=== PATIENT | female | born 1975 | race Caucasian/White ===

== ENCOUNTER → 2018-08-12 | Outpatient (CLI) | payer OTHER | LOC: RAD 10:32 | DX: Z12.31 Encounter for screening mammogram for malignant neoplasm of breast (principal) ==

== ENCOUNTER → 2018-09-09 | Outpatient (CLI) | payer OTHER ==
[~2018-09-09] VITALS: Ht 162.6 cm; Wt 69.9 kg
[~2018-09-09] MED LIST: FLONASE 0.05%50 MCG NASAL; TUMS PO; ZYRTEC10 M5 PO
--- NOTE | ~2018-09-09 | P ---
[facility] [place] [address] PROCEDURE REPORT Name: JASON MAC Room #: REG [facility].#: [id number] Admission: 09/09/18 ������������������ Attend Phys: Hari Goldstein Discharge: ������������������ Date of : 71 Report #: [id number] THIS REPORT FOR: //name// CC: Hari Schaeffer ARMANDO MORALES Kt Reyes DATE OF SERVICE: 09/09/2018 PROCEDURE: Upper endoscopy with biopsies and esophageal dilation. HISTORY OF PRESENT ILLNESS: The patient is a 42-year-old female who was seen in the office initially on 09/04/2018 with complaints of dysphagia. This has been ongoing for approximately 5 years. No previous history of endoscopy. She does report some mild heartburn at times, uses Tums on a p.r.n. basis. Plan is for EGD. DESCRIPTION OF PROCEDURE: The risks and benefits of the procedure were explained to the patient, those risks including but not limited to bleeding, perforation and the risk of sedation. She understood these risks and gave informed consent. Sedation was given using propofol per Anesthesia. Next, using a standard Olympus upper endoscope, the scope was placed in the patient's mouth and advanced under direct vision to the esophagus, stomach and into the second portion of the duodenum. The larynx was normal in appearance. The esophagus showed changes consistent with eosinophilic esophagitis. Biopsies were obtained. In the distal esophagus at the GE junction, grade A erosive esophagitis was also noted. No evidence of stricture. Overall, the gastric mucosa was normal in the fundus and body; however, in the antrum, several small erosions were noted. Biopsies were obtained to rule out H. pylori. The pylorus was normal and patent. The duodenal bulb, first and second portion were all normal. The scope was then brought back up into the patient's stomach and a Savary guidewire was inserted through the scope, leaving the guidewire in place as the scope was then withdrawn. Next, a 48-Estonian Savary dilation of the esophagus was then performed without difficulty. The wire and dilator were removed. The scope was reintroduced into the patient's stomach. There was no evidence of mucosal tear after dilation. The scope was then withdrawn and the procedure terminated. The patient tolerated the procedure well. IMPRESSION: 1. Changes of likely eosinophilic esophagitis noted. 2. Grade A erosive esophagitis. 3. Small gastric erosions. 4. Otherwise, normal upper endoscopy. RECOMMENDATIONS: 1. Await biopsy results. [address] [address] PROCEDURE REPORT Name: JASON MAC Room #: REG [facility] [place]#: [id number] Admission: 09/09/18 ������������������ Attend Phys: Hari Goldstein Discharge: ������������������ Date of : 71 Report #: [id number] 2. Observe the patient post-dilation. 3. Recommend daily PPI therapy. Thank you for allowing me to participate in her care. ��������������������������������������������� ���������������������������������������� By: ��������������������������������������������� [id number] Hari Schaeffer, /pj
--- NOTE | 2018-09-10 16:06 | PATH ---
[facility] [address] [place] [address] PATHOLOGY RPT PROCEDURE Name: JASON MAC Room #: REG [facility] [place].#: [id number] ������������������ Admission: 09/09/18 ������������������ Date of : 71 Discharge: Report #: [id number] Path Case #: [id number] [facility] Accession Number: [id number] . 01 Material submitted: . PART A: stomach - BX GASTRITIS R/O H PYLORI PART B: esophagus - BX ESOPHAGUS R/O EOSINOPHILIC ESOPHAGITIS . 01 Clinical history: . Pre-OP DX: Dysphagia Post-OP DX: Gastritis, esophagitis, dysphagia . 01 Frozen section diagnosis: . . /QMS . 02 Diagnosis: A. Gastric mucosa, gastritis R/O H. pylori, endoscopic biopsy: - Moderate reactive gastropathy. - Negative for intestinal metaplasia or atrophy. - Negative for Helicobacter pylori (properly controlled immunohistochemical stain performed). . B. Squamous mucosa, esophagus R/O EOE, endoscopic biopsy: - Mild active esophagitis with increased intraepithelial eosinophils, ranging from 8-10 per high power field (please see comment). . (IUV:jackeline; 09/10/2018) QMS/09/10/2018 . 02 Comment: Examination of the esophageal biopsy tissue shows squamous mucosa with a marked number of intraepithelial eosinophils. Although eosinophils are commonly encountered in inflammation due to reflux esophagitis, the eosinophils in the present specimen are numerous, exceeding 8-10/hpf. Apart from reflux esophagitis, potential etiologies for the histologic pattern include allergic and collagen vascular diseases, fungal or parasitic infections, and eosinophilic esophagitis (idiopathic). Please correlate with clinical and endoscopic findings. (IUV:jackeline; 09/10/2018) . 02 Electronically signed: . Argenis Taylor MD, Pathologist NPI- [id number] . 01 Gross description: . A. Received in formalin labeled "Jason Mac BX gastritis, rule out [address] [address] PATHOLOGY RPT PROCEDURE Name: JASON MAC Room #: REG [facility]#: [id number] ������������������ Admission: 09/09/18 ������������������ Date of : 71 Discharge: Report #: [id number] Path Case #: [id number] H. pylori," are 5 segments of velazco soft tissue measuring 1.3 x 0.9 x 0.1 cm in aggregate dimensions and ranging from 0.1 to 0.5 cm in maximum dimension. The specimen is submitted entirely in cassette A1. . B. Received in formalin labeled "Nancy Jason, BX esophagus, rule out eosinophilic esophagitis," are 4 segments of velazco soft tissue measuring 1.4 x 1.1 x 0.1 cm in aggregate dimensions and ranging from 0.2 to 0.6 cm in maximum dimension. The specimen is submitted entirely in cassette B1. (TSD; 09/09/2018) TOB/TOB . 02 Pathologist provided ICD-10: K31.9, K20.9 . 02 CPT . 178974, 961527, [id number] Specimen Comment: A courtesy copy of this report has been sent to Specimen Comment: [phone], . Specimen Comment: Report sent to / DR ZENDEJAS Performed at: [address] [id number] MD Aneudy Scruggs MD Phone: [phone] Performed at: [address] [id number] MD Argenis Taylor MD Phone: [phone]
== END | disposition home or self-care (01) ==
LOC: GI 07:54
DX: K31.9 Disease of stomach and duodenum, unspecified (principal); K20.9 Esophagitis, unspecified; K21.9 Gastro-esophageal reflux disease without esophagitis; Z87.891 Personal history of nicotine dependence; Z98.51 Tubal ligation status; Z98.890 Other specified postprocedural states; Z79.899 Other long term (current) drug therapy
CPT/HCPCS: 62110; 62900

== ENCOUNTER → 2019-02-17 | Outpatient (CLI) | payer OTHER ==
[~2019-02-17] VITALS: Ht 160 cm; Wt 65.3 kg
[~2019-02-17] MED LIST changes: +CLONAZEPAM 0.50.5 M1 PO; +PROTONIX 20 MG20 MG PO
--- NOTE | ~2019-02-17 | P ---
[facility] [place] [place] [address] PROCEDURE REPORT Name: JASON MAC Room #: REG [facility]#: [id number] Admission: 02/17/19 Attend Phys: Hari Goldstein Discharge: Date of : 71 Report #: [id number] THIS REPORT FOR: //name// CC: Natalia Hernandez [facility] Hari Reyes MD DATE OF SERVICE: 02/17/2019 PROCEDURE PERFORMED: Colonoscopy. HISTORY OF PRESENT ILLNESS: The patient is a 43-year-old female who presents today for screening colonoscopy. Her sister was recently diagnosed with Begum syndrome following an endometrial cancer. The patient is to be tested for Begum syndrome, but has not been tested as of yet. There is a possible family history of colon cancer in her grandmother. The patient denies any symptoms at this time. Her bowel movements have been normal. No previous history of colonoscopy. DESCRIPTION OF PROCEDURE: The risks and benefits of the procedure were explained to the patient, those risks including but not limited to bleeding, perforation and the risk of sedation. She understood these risks and gave informed consent. Sedation was given using propofol per anesthesia. Next, a digital rectal exam showed small external hemorrhoids, otherwise normal. Next, using a standard Olympus colonoscope, the scope was placed in the patient's anus and advanced under direct vision to the cecum. The overall prep was excellent. The cecum and ileocecal valve were normal in appearance. Ascending, transverse, descending and sigmoid colon were all normal. The rectal mucosa was normal. On retroflexion, no abnormalities were noted. Close examination of the anal canal showed a single external hemorrhoid. The scope was then withdrawn and the procedure terminated. The patient tolerated the procedure well. IMPRESSION: 1. Small external hemorrhoid. 2. Otherwise, normal colonoscopy. RECOMMENDATIONS: Await Begum syndrome testing results. If positive, the patient will need a colonoscopy and EGD every 1-2 years. If negative, likely recommend repeat colonoscopy in 5 years due to the possible family history of colon cancer. [facility] [address] [place] [address] PROCEDURE REPORT Name: JASON MAC Room #: REG [facility] Dick#: [id number] Admission: 02/17/19 Attend Phys: Hari Goldstein Discharge: Date of : 71 Report #: [id number] Thank you for allowing me to participate in her care. By: [id number] Hari Schaeffer MD /nt
== END | disposition home or self-care (01) ==
LOC: GI 07:12
DX: Z12.11 Encounter for screening for malignant neoplasm of colon (principal); K64.4 Residual hemorrhoidal skin tags; K21.9 Gastro-esophageal reflux disease without esophagitis; F17.210 Nicotine dependence, cigarettes, uncomplicated; Z98.890 Other specified postprocedural states; Z85.828 Personal history of other malignant neoplasm of skin; Z98.51 Tubal ligation status; Z88.8 Allergy status to other drugs, medicaments and biological substances; Z79.899 Other long term (current) drug therapy; Z84.81 Family history of carrier of genetic disease
CPT/HCPCS: 62110; 62900

== ENCOUNTER → 2019-09-23 | Outpatient (CLI) | payer OTHER | LOC: RAD 13:12 | PROVIDERS: ATTEND Obstetrics & Gynecology | DX: Z12.31 Encounter for screening mammogram for malignant neoplasm of breast (principal) ==

== ENCOUNTER → 2020-02-07 | Outpatient (CLI) | payer OTHER | LOC: LAB 12:04 | PROVIDERS: ATTEND Nurse Practitioner | DX: U07.1 COVID-19 (principal) ==

== ENCOUNTER 2020-11-15 15:40 | Emergency (ER) | payer OTHER ==
[2020-11-15 16:09] VITALS: BP 118/91
== END 2020-11-15 16:40 | disposition left against medical advice (07) ==
LOC: ER 15:40
PROVIDERS: Emergency Medicine
DX: Z53.21 Procedure and treatment not carried out due to patient leaving prior to being seen by health care provider (principal); Z20.822 Contact with and (suspected) exposure to COVID-19; K21.9 Gastro-esophageal reflux disease without esophagitis; Z91.09 Other allergy status, other than to drugs and biological substances

== ENCOUNTER → 2021-01-10 | Outpatient (CLI) | payer OTHER | LOC: BC 13:21 | PROVIDERS: ATTEND Obstetrics & Gynecology | DX: Z12.31 Encounter for screening mammogram for malignant neoplasm of breast (principal) ==